=== PATIENT | male | born 1985 | race Caucasian/White ===

== ENCOUNTER 2020-03-08 10:16 | Inpatient (IN) | payer MEDICAID ==
[~2020-03-08] VITALS: Ht 175.3 cm; Wt 67.9 kg
[2020-03-08 11:12] LABS: MEAN CORPUSCULAR HEMOGLOBIN 28.8 pg (27.5-34.5); MEAN CORPUSCULAR HGB CONC 33.5 g/dL (33.2-36.2); MEAN PLATELET VOLUME 7.1 fL (7.4-10.4); PLATELET COUNT 263 x10^3/uL (130-400); RED BLOOD COUNT 5.07 x10^6/uL (4.38-5.82); RED CELL DISTRIBUTION WIDTH 13.7 % (9.4-14.8)
[2020-03-08 11:23] LABS: ALANINE AMINOTRANSFERASE 29 U/L (12-78); ALBUMIN 2.4 g/dL (3.4-5.0); ANION GAP 6 mmol/L (5-15); CALCIUM 8.9 mg/dL (8.5-10.1); CHLORIDE 95 mmol/L (98-107); CREATININE 1.08 mg/dL (0.7-1.3)
[2020-03-08 11:25] LABS: ALKALINE PHOSPHATASE 162 U/L (45-117); BILIRUBIN,TOTAL 0.9 mg/dL (0.2-1.0); TOTAL PROTEIN 6.9 g/dL (6.4-8.2)
[2020-03-08 11:39] LABS: MD YES
[2020-03-08 11:43] LABS: <PLATELET ESTIMATE> ADEQUATE; <PLT MORPHOLOGY> NORMAL PLT MORPH; <RBC MORPHOLOGY> NORMAL; BAND#(MANUAL) 2.78 x10^3/uL; BANDS%(MANUAL) 15 % (0-7); LYMPH#(MANUAL) 1.11 x10^3/uL (1-3.4); LYMPHS% (MANUAL) 6 % (22-44); METAMYELOCYTES# (MANUAL) 0.19 x10^3/uL (0-0); METAMYELOCYTES% (MANUAL) 1 % (0-1); MONOS#(MANUAL) 0.56 x10^3/uL (0.3-2.7); MONOS% (MANUAL) 3 % (2-9); PMNS WITH VACUOLES 1+; SEG#(MANUAL) 13.88 x10^3/uL (1.8-6.8); SEGS% (MANUAL) 75 % (42-75)
--- NOTE | 2020-03-08 12:41 | NUR ---
C/O PAIN AND SWELLING ON PENIS SINCE 0200 AM THIS MORNING. PLACED ON VITALS MONITORS, CALL LIGHT WITHIN REACH.
--- NOTE | 2020-03-08 12:57 | NUR ---
URINE SAMPLE COLLECTED.
[2020-03-08] MEDS ORDERED: SODIUM CHLORIDE FLUSH 10ML SYR IVF ONE (13:00)
[2020-03-08] MEDS ORDERED: SODIUM CHLORIDE 0.9% 1,000ML IV ONE (13:00)
[2020-03-08 13:08] LABS: MICROSCOPIC INDICATED
--- NOTE | 2020-03-08 13:21 | NUR ---
CHELLE GODOY PT'S MOM, OKAY TO RELEASE INFORMATION PER PT. [phone]
[2020-03-08] MEDS ORDERED: HYDROmorphone 1 MG/ML, 1ML INJ ONE ×2 (13:24→16:43)
[2020-03-08] MEDS ORDERED: ONDANSETRON 2MG/ML, 2ML ONE (13:24)
[2020-03-08] MEDS ORDERED: CEFTRIAXONE PMX 1GM/50ML 50 ML ONE (13:24)
[2020-03-08] MEDS: HYDROmorphone 1 MG/ML, 1ML INJ IVPush PRN ×2 (13:26→16:48)
[2020-03-08 13:27] LABS: AMPHETAMINE SCREEN, URINE Positive (Negative); BARBITURATE SCREEN, URINE Negative (Negative); BENZODIAZEPINE SCREEN, URINE Negative (Negative); CANNABINOID SCREEN, URINE Positive (Negative); COCAINE SCREEN, URINE Negative (Negative); METHADONE SCREEN, URINE Negative (Negative); OPIATE SCREEN, URINE Negative (Negative)
[2020-03-08] MEDS ORDERED: CEFTRIAXONE PMX 1GM/50ML 50 ML IV ONE (13:30)
--- NOTE | 2020-03-08 13:36 | NUR ---
CALL TO CT, PT IS READY FOR CT.
[2020-03-08] MEDS ORDERED: VANCOMYCIN PER PHARMACY MC PRN ×2 (14:00→16:30)
[2020-03-08] MEDS ORDERED: ONDANSETRON 2MG/ML, 2ML IVPush ONE (14:00)
[2020-03-08] MEDS ORDERED: VANCOMYCIN 1,700 MG in SODIUM CHLORIDE 0.9% 250 ML IV ONE (14:00)
--- NOTE | 2020-03-08 14:03 | NUR ---
PT TRANSPORTED TO CT.
[2020-03-08] MEDS ORDERED: OMNIPAQUE 350 MG/ML, 100ML BOTTLE ONE (14:18)
--- NOTE | 2020-03-08 14:50 | NUR ---
GRANDMOTHER [phone], ISABELL GUDINO TO RELEASE INFORMATION PER PT REQUEST.
--- NOTE | 2020-03-08 14:50 | NUR ---
PT REPORTS PAIN HAS SUBSIDED.
[2020-03-08] MEDS ORDERED: ALBUTEROL INHALER (15:10)
--- NOTE | 2020-03-08 15:46 | NUR ---
RAPID COVID SWAB SENT TO LAB.
--- NOTE | 2020-03-08 15:47 | NUR ---
BLADDER SCAN INDICATED >542ML.
[2020-03-08] MEDS ORDERED: SODIUM CHLORIDE 0.9% 1,000ML IVBOLUS ONE (16:00)
[2020-03-08] MEDS ORDERED: ONDANSETRON ODT 4 MG PO PRN (16:30)
[2020-03-08] MEDS ORDERED: ONDANSETRON 2MG/ML, 2ML IVPush PRN (16:30)
[2020-03-08] MEDS ORDERED: PIPERACILLIN/TAZO/PMX 3.375GM 50 ML ONE (16:30)
[2020-03-08] MEDS ORDERED: ACETAMINOPHEN 325 MG TABLET PO PRN (16:30)
[2020-03-08] MEDS: PIPERACILLIN/TAZO/PMX 3.375GM 50 ML IV SCH (16:34)
[2020-03-08] MEDS ORDERED: LIDOCAINE 1%, 20ML ONE (16:37)
[2020-03-08] MEDS: LACTATED RINGERS 1,000 ML IV SCH (16:39)
[2020-03-08] MEDS ORDERED: NALOXONE 1 MG/ML, 2ML ONE (16:51)
[2020-03-08] MEDS ORDERED: FENTANYL PF 100 MCG/2ML ONE (16:51)
--- NOTE | 2020-03-08 16:55 | NUR ---
PT TRANSPORTED TO IR.
--- NOTE | 2020-03-08 17:49 | NUR ---
CALL FROM [facility] RN, PT HAS A 14Fr. SUPRAPUBIC CATH, 1000ML OUTPUT AT THIS TIME.
--- NOTE | 2020-03-08 20:16 | NUR ---
REPORT TO TIFFANIE DE LA PAZ.
[2020-03-08] MEDS: morphine SULFATE 10 MG/ML, 1ML IVPush PRN (23:27)
[2020-03-09] MEDS: PIPERACILLIN/TAZO/PMX 3.375GM 50 ML IV SCH ×3 (00:56→16:10)
[2020-03-09] MEDS: LACTATED RINGERS 1,000 ML IV SCH ×3 (00:57→20:05)
[2020-03-09 02:05] VITALS: BP 109/63
[2020-03-09 06:51] VITALS: BP 103/62
[2020-03-09 06:53] LABS: BASOPHILS % (AUTO) 1 % (0-1); EOSINOPHILS % (AUTO) 0 % (1-7); LYMPHOCYTES % (AUTO) 10 % (22-44); MEAN CORPUSCULAR HEMOGLOBIN 28.4 pg (27.5-34.5); MEAN CORPUSCULAR HGB CONC 33.2 g/dL (33.2-36.2); MEAN PLATELET VOLUME 8.1 fL (7.4-10.4); MONOCYTES % (AUTO) 6 % (2-9); NEUTROPHILS % (AUTO) 84 % (42-75); PLATELET COUNT 192 x10^3/uL (130-400); RED BLOOD COUNT 4.16 x10^6/uL (4.38-5.82); RED CELL DISTRIBUTION WIDTH 13.8 % (9.4-14.8)
[2020-03-09 06:56] LABS: MD NO
[2020-03-09 07:05] LABS: CHLORIDE 101 mmol/L (98-107)
[2020-03-09 07:10] LABS: ALANINE AMINOTRANSFERASE 20 U/L (12-78); ALBUMIN 1.8 g/dL (3.4-5.0); ALKALINE PHOSPHATASE 122 U/L (45-117); ANION GAP 7 mmol/L (5-15); BILIRUBIN,TOTAL 0.8 mg/dL (0.2-1.0); CREATININE 0.72 mg/dL (0.7-1.3); TOTAL PROTEIN 5.5 g/dL (6.4-8.2)
[2020-03-09] MEDS: morphine SULFATE 10 MG/ML, 1ML IVPush PRN (09:07)
[2020-03-09] MEDS ORDERED: PHARMACOKINETIC MONITORING MC PRN (11:00)
[2020-03-09] MEDS: VANCOMYCIN 1,500 MG in SODIUM CHLORIDE 0.9% 250 ML IV SCH (11:08)
[2020-03-09] MEDS ORDERED: CHLORHEXIDINE 15 ML UDC ONE (12:03)
[2020-03-09] MEDS ORDERED: CHLORHEXIDINE 15 ML UDC MM ONE (12:30)
[2020-03-09] MEDS ORDERED: FENTANYL PF 250 MCG/5ML ONE (12:47)
[2020-03-09] MEDS ORDERED: PROPOFOL 10 MG/ML, 20ML ONE (13:01)
[2020-03-09] MEDS ORDERED: DEXAMETHASONE 4 MG/ML, 5ML ONE (13:01)
[2020-03-09] MEDS ORDERED: ONDANSETRON 2MG/ML, 2ML ONE (13:01)
[2020-03-09] MEDS ORDERED: FENTANYL PF 100 MCG/2ML IV PRN (13:30)
[2020-03-09] MEDS ORDERED: ONDANSETRON 2MG/ML, 2ML IVPush PRN (13:30)
[2020-03-09] MEDS ORDERED: OXYcodone 5 MG/5 ML ORAL.SOL UDC PO PRN (13:30)
[2020-03-09] MEDS ORDERED: HYDROmorphone 1 MG/ML, 1ML INJ IVPush PRN (13:30)
[2020-03-09 15:00] VITALS: BP 116/78
[2020-03-09] MEDS: NICOTINE 21 MG/24 HR PATCH.TD24 TD SCH (16:10)
[2020-03-09] MEDS ORDERED: FENTANYL PF 100 MCG/2ML ONE (16:29)
[2020-03-09] MEDS ORDERED: NALOXONE 1 MG/ML, 2ML ONE (16:29)
[2020-03-09] MEDS ORDERED: LIDOCAINE 1%, 10ML ONE ×2 (16:37→17:06)
[2020-03-09 18:47] VITALS: BP 108/69
[2020-03-10 00:04] VITALS: BP 97/63
[2020-03-10] MEDS: PIPERACILLIN/TAZO/PMX 3.375GM 50 ML IV SCH ×3 (02:16→17:43)
[2020-03-10] MEDS: morphine SULFATE 10 MG/ML, 1ML IVPush PRN ×5 (03:06→20:49)
[2020-03-10 04:30] LABS: BASOPHILS % (AUTO) 0 % (0-1); EOSINOPHILS % (AUTO) 0 % (1-7); LYMPHOCYTES % (AUTO) 8 % (22-44); MEAN CORPUSCULAR HEMOGLOBIN 28.2 pg (27.5-34.5); MEAN CORPUSCULAR HGB CONC 32.6 g/dL (33.2-36.2); MEAN PLATELET VOLUME 7.9 fL (7.4-10.4); MONOCYTES % (AUTO) 6 % (2-9); NEUTROPHILS % (AUTO) 85 % (42-75); PLATELET COUNT 199 x10^3/uL (130-400); RED BLOOD COUNT 4.11 x10^6/uL (4.38-5.82)
[2020-03-10 04:36] LABS: ALBUMIN 1.6 g/dL (3.4-5.0); CALCIUM 7.8 mg/dL (8.5-10.1)
[2020-03-10 04:41] LABS: ALANINE AMINOTRANSFERASE 21 U/L (12-78); ALKALINE PHOSPHATASE 122 U/L (45-117); BILIRUBIN,TOTAL 0.4 mg/dL (0.2-1.0); CREATININE 0.83 mg/dL (0.7-1.3); TOTAL PROTEIN 5.3 g/dL (6.4-8.2)
[2020-03-10 04:54] LABS: MD NO
[2020-03-10 05:24] LABS: ANION GAP 4 mmol/L (5-15); CHLORIDE 103 mmol/L (98-107)
[2020-03-10 07:20] VITALS: BP 108/67
[2020-03-10] MEDS: NICOTINE 21 MG/24 HR PATCH.TD24 TD SCH (10:09)
[2020-03-10] MEDS: LACTATED RINGERS 1,000 ML IV SCH (10:18)
[2020-03-10] MEDS: VANCOMYCIN 1,500 MG in SODIUM CHLORIDE 0.9% 250 ML IV SCH ×2 (12:10)
[2020-03-10 12:26] VITALS: BP 105/65
[2020-03-10] MEDS: HYDROcodone/APAP 5/325 TABLET PO PRN (17:51)
[2020-03-10 18:54] VITALS: BP 113/70
[2020-03-11] MEDS: LACTATED RINGERS 1,000 ML IV SCH ×3 (00:02→20:17)
[2020-03-11 00:41] VITALS: BP 105/68
[2020-03-11] MEDS: HYDROcodone/APAP 5/325 TABLET PO PRN ×4 (00:53→18:48)
[2020-03-11] MEDS: PIPERACILLIN/TAZO/PMX 3.375GM 50 ML IV SCH ×3 (01:39→18:50)
[2020-03-11 05:05] LABS: ALBUMIN 1.6 g/dL (3.4-5.0); ANION GAP 3 mmol/L (5-15); CALCIUM 7.8 mg/dL (8.5-10.1); CHLORIDE 106 mmol/L (98-107)
[2020-03-11 05:07] LABS: MEAN CORPUSCULAR HEMOGLOBIN 28.6 pg (27.5-34.5); MEAN CORPUSCULAR HGB CONC 32.9 g/dL (33.2-36.2); MEAN PLATELET VOLUME 7.7 fL (7.4-10.4); PLATELET COUNT 244 x10^3/uL (130-400); RED BLOOD COUNT 4.08 x10^6/uL (4.38-5.82); RED CELL DISTRIBUTION WIDTH 13.8 % (9.4-14.8)
[2020-03-11 05:08] LABS: ALANINE AMINOTRANSFERASE 23 U/L (12-78); ALKALINE PHOSPHATASE 99 U/L (45-117); BILIRUBIN,TOTAL 0.3 mg/dL (0.2-1.0); CREATININE 0.54 mg/dL (0.7-1.3); TOTAL PROTEIN 5.1 g/dL (6.4-8.2)
[2020-03-11 06:17] LABS: MD YES
[2020-03-11 06:18] LABS: BAND#(MANUAL) 0.33 x10^3/uL; BANDS%(MANUAL) 3 % (0-7); EOS#(MANUAL) 0.22 x10^3/uL (0.0-0.4); EOS% (MANUAL) 2 % (1-7); LYMPHS% (MANUAL) 22 % (22-44); METAMYELOCYTES# (MANUAL) 0.33 x10^3/uL (0-0); METAMYELOCYTES% (MANUAL) 3 % (0-1); MONOS#(MANUAL) 0.33 x10^3/uL (0.3-2.7); MONOS% (MANUAL) 3 % (2-9); SEGS% (MANUAL) 67 % (42-75)
[2020-03-11 06:20] LABS: <PLATELET ESTIMATE> ADEQUATE; <PLT MORPHOLOGY> NORMAL PLT MORPH; OVALOCYTES 1+
[2020-03-11 08:25] VITALS: BP 124/79
[2020-03-11] MEDS: NICOTINE 21 MG/24 HR PATCH.TD24 TD SCH (10:47)
[2020-03-11 13:11] VITALS: BP 108/68
[2020-03-11] MEDS ORDERED: BISACODYL 10 MG SUPP PR PRN (17:30)
[2020-03-11 19:27] VITALS: BP 123/78
[2020-03-11] MEDS: AMPICILLIN 2 GM in SODIUM CHLORIDE 0.9% 100 ML IV SCH ×2 (20:17→23:23)
[2020-03-11] MEDS: SENNA/DOCUSATE TABLET PO PRN (20:30)
[2020-03-12 00:49] VITALS: BP 127/81
[2020-03-12] MEDS: HYDROcodone/APAP 5/325 TABLET PO PRN ×3 (01:45→17:46)
[2020-03-12] MEDS: AMPICILLIN 2 GM in SODIUM CHLORIDE 0.9% 100 ML IV SCH ×6 (02:00→23:30)
[2020-03-12] MEDS: LACTATED RINGERS 1,000 ML IV SCH ×3 (04:17→21:28)
[2020-03-12 06:07] LABS: CHLORIDE 103 mmol/L (98-107)
[2020-03-12 06:09] LABS: MEAN CORPUSCULAR HEMOGLOBIN 28.2 pg (27.5-34.5); MEAN CORPUSCULAR HGB CONC 32.8 g/dL (33.2-36.2); MEAN PLATELET VOLUME 6.9 fL (7.4-10.4); PLATELET COUNT 367 x10^3/uL (130-400); RED BLOOD COUNT 4.54 x10^6/uL (4.38-5.82); RED CELL DISTRIBUTION WIDTH 13.7 % (9.4-14.8)
[2020-03-12 06:19] LABS: ALANINE AMINOTRANSFERASE 29 U/L (12-78); ALBUMIN 1.8 g/dL (3.4-5.0); ALKALINE PHOSPHATASE 106 U/L (45-117); ANION GAP 5 mmol/L (5-15); BILIRUBIN,TOTAL 0.4 mg/dL (0.2-1.0); CALCIUM 8.7 mg/dL (8.5-10.1); CREATININE 0.57 mg/dL (0.7-1.3); TOTAL PROTEIN 5.6 g/dL (6.4-8.2)
[2020-03-12 06:51] LABS: HCT (SEDRATE) 38.9 % (39.2-51.8)
[2020-03-12 07:06] LABS: MD YES
[2020-03-12 07:08] LABS: <PLATELET ESTIMATE> ADEQUATE; <PLT MORPHOLOGY> NORMAL PLT MORPH; <RBC MORPHOLOGY> NORMAL; EOS#(MANUAL) 0.42 x10^3/uL (0.0-0.4); EOS% (MANUAL) 3 % (1-7); LYMPH#(MANUAL) 3.92 x10^3/uL (1-3.4); LYMPHS% (MANUAL) 28 % (22-44); MONOS#(MANUAL) 0.56 x10^3/uL (0.3-2.7); MONOS% (MANUAL) 4 % (2-9); MYELOCYTES# (MANUAL) 0.28 x10^3/uL (0-0); MYELOCYTES% (MANUAL) 2 % (0-0); REACTIVE LYMPHS # (MANUAL) 0.14 x10^3/uL (0-0); REACTIVE LYMPHS % (MANUAL) 1 % (0-0); SEG#(MANUAL) 8.68 x10^3/uL (1.8-6.8); SEGS% (MANUAL) 62 % (42-75)
[2020-03-12 07:18] VITALS: BP 123/79
[2020-03-12] MEDS ORDERED: OMNIPAQUE 350 MG/ML, 100ML BOTTLE ONE (08:57)
[2020-03-12] MEDS: NICOTINE 21 MG/24 HR PATCH.TD24 TD SCH (09:00)
[2020-03-12 13:57] VITALS: BP 122/77
[2020-03-12] MEDS: SENNA/DOCUSATE TABLET PO PRN (18:59)
[2020-03-12 19:38] VITALS: BP 118/76
[2020-03-12] MEDS: ZOLPIDEM 5MG TABLET PO PRN (21:29)
[2020-03-13 00:08] VITALS: BP 118/78
[2020-03-13] MEDS: LACTATED RINGERS 1,000 ML IV SCH ×3 (03:42→21:09)
[2020-03-13] MEDS: AMPICILLIN 2 GM in SODIUM CHLORIDE 0.9% 100 ML IV SCH ×6 (03:42→22:38)
[2020-03-13 05:03] LABS: MEAN CORPUSCULAR HEMOGLOBIN 28.2 pg (27.5-34.5); MEAN CORPUSCULAR HGB CONC 32.6 g/dL (33.2-36.2); MEAN PLATELET VOLUME 6.8 fL (7.4-10.4); PLATELET COUNT 425 x10^3/uL (130-400); RED BLOOD COUNT 4.33 x10^6/uL (4.38-5.82); RED CELL DISTRIBUTION WIDTH 13.8 % (9.4-14.8)
[2020-03-13 05:12] LABS: ALBUMIN 1.8 g/dL (3.4-5.0); ANION GAP 4 mmol/L (5-15); CALCIUM 8.4 mg/dL (8.5-10.1); CHLORIDE 105 mmol/L (98-107)
[2020-03-13 05:16] LABS: ALANINE AMINOTRANSFERASE 35 U/L (12-78); ALKALINE PHOSPHATASE 104 U/L (45-117); BILIRUBIN,TOTAL 0.4 mg/dL (0.2-1.0); CREATININE 0.63 mg/dL (0.7-1.3); TOTAL PROTEIN 5.6 g/dL (6.4-8.2)
[2020-03-13 06:15] LABS: BAND#(MANUAL) 0.16 x10^3/uL; BANDS%(MANUAL) 1 % (0-7); EOS#(MANUAL) 0.32 x10^3/uL (0.0-0.4); EOS% (MANUAL) 2 % (1-7); LYMPH#(MANUAL) 3.34 x10^3/uL (1-3.4); LYMPHS% (MANUAL) 21 % (22-44); MD YES; MONOS#(MANUAL) 0.95 x10^3/uL (0.3-2.7); MONOS% (MANUAL) 6 % (2-9); SEG#(MANUAL) 10.34 x10^3/uL (1.8-6.8); SEGS% (MANUAL) 65 % (42-75)
[2020-03-13 06:16] LABS: <PLATELET ESTIMATE> INCREASED; <PLT MORPHOLOGY> NORMAL PLT MORPH; METAMYELOCYTES# (MANUAL) 0.48 x10^3/uL (0-0); METAMYELOCYTES% (MANUAL) 3 % (0-1); MYELOCYTES# (MANUAL) 0.32 x10^3/uL (0-0); MYELOCYTES% (MANUAL) 2 % (0-0)
[2020-03-13 06:17] LABS: <RBC MORPHOLOGY> NORMAL
[2020-03-13 07:12] VITALS: BP 127/76
[2020-03-13] MEDS: NICOTINE 21 MG/24 HR PATCH.TD24 TD SCH (08:13)
[2020-03-13] MEDS: HYDROcodone/APAP 5/325 TABLET PO PRN ×2 (08:14→12:58)
[2020-03-13 12:30] VITALS: BP 119/83
[2020-03-13 18:38] VITALS: BP 122/77
[2020-03-13] MEDS: ZOLPIDEM 5MG TABLET PO PRN (21:10)
[2020-03-13] MEDS: POLYETHYLENE GLYCOL 17 GM PACKET PO PRN (22:38)
[2020-03-14 01:30] VITALS: BP 122/80
[2020-03-14] MEDS: HYDROcodone/APAP 5/325 TABLET PO PRN ×4 (01:32→20:49)
[2020-03-14] MEDS: AMPICILLIN 2 GM in SODIUM CHLORIDE 0.9% 100 ML IV SCH ×5 (02:37→20:49)
[2020-03-14] MEDS: LACTATED RINGERS 1,000 ML IV SCH ×3 (04:22→22:01)
[2020-03-14 05:04] LABS: MEAN CORPUSCULAR HEMOGLOBIN 28.6 pg (27.5-34.5); MEAN CORPUSCULAR HGB CONC 33.2 g/dL (33.2-36.2); MEAN PLATELET VOLUME 6.4 fL (7.4-10.4); PLATELET COUNT 472 x10^3/uL (130-400); RED BLOOD COUNT 4.35 x10^6/uL (4.38-5.82); RED CELL DISTRIBUTION WIDTH 13.7 % (9.4-14.8)
[2020-03-14] MEDS ORDERED: FLU VACC QS2020-21(6MOS UP)/PF 60MCG/0.5 ML SYR IM-VACC ONE ×2 (05:30→08:00)
[2020-03-14 05:48] LABS: MD YES
[2020-03-14 05:49] LABS: BAND#(MANUAL) 0.15 x10^3/uL; BANDS%(MANUAL) 1 % (0-7); EOS#(MANUAL) 0.31 x10^3/uL (0.0-0.4); EOS% (MANUAL) 2 % (1-7); LYMPH#(MANUAL) 2.46 x10^3/uL (1-3.4); LYMPHS% (MANUAL) 16 % (22-44); MONOS#(MANUAL) 0.62 x10^3/uL (0.3-2.7); MONOS% (MANUAL) 4 % (2-9); SEG#(MANUAL) 11.86 x10^3/uL (1.8-6.8); SEGS% (MANUAL) 77 % (42-75)
[2020-03-14 05:50] LABS: <PLATELET ESTIMATE> INCREASED; <PLT MORPHOLOGY> NORMAL PLT MORPH; <RBC MORPHOLOGY> NORMAL
[2020-03-14 07:14] VITALS: BP 120/77
[2020-03-14] MEDS: NICOTINE 21 MG/24 HR PATCH.TD24 TD SCH (07:18)
[2020-03-14] MEDS ORDERED: LORazepam 2 MG/ML, 1ML ONE (07:36)
[2020-03-14] MEDS ORDERED: LORazepam 2 MG/ML, 1ML IVPush ONE (08:00)
[2020-03-14 12:24] VITALS: BP 118/76
[2020-03-14] MEDS: ZOLPIDEM 5MG TABLET PO PRN (21:00)
[2020-03-14 21:12] VITALS: BP 121/75
[2020-03-15 02:33] VITALS: BP 116/73
[2020-03-15] MEDS: AMPICILLIN 2 GM in SODIUM CHLORIDE 0.9% 100 ML IV SCH ×6 (03:00→21:06)
[2020-03-15] MEDS: LACTATED RINGERS 1,000 ML IV SCH ×2 (06:49→12:04)
[2020-03-15 07:35] VITALS: BP 115/70
[2020-03-15] MEDS: NICOTINE 21 MG/24 HR PATCH.TD24 TD SCH (08:21)
[2020-03-15 09:44] LABS: BASOPHILS % (AUTO) 1 % (0-1); EOSINOPHILS % (AUTO) 2 % (1-7); LYMPHOCYTES % (AUTO) 18 % (22-44); MEAN CORPUSCULAR HEMOGLOBIN 28.1 pg (27.5-34.5); MEAN CORPUSCULAR HGB CONC 32.4 g/dL (33.2-36.2); MEAN PLATELET VOLUME 6.3 fL (7.4-10.4); MONOCYTES % (AUTO) 6 % (2-9); NEUTROPHILS % (AUTO) 73 % (42-75); PLATELET COUNT 593 x10^3/uL (130-400); RED BLOOD COUNT 4.41 x10^6/uL (4.38-5.82); RED CELL DISTRIBUTION WIDTH 13.9 % (9.4-14.8)
[2020-03-15 10:04] LABS: MD SCAN
[2020-03-15] MEDS: HYDROcodone/APAP 5/325 TABLET PO PRN ×2 (11:59→21:06)
[2020-03-15] MEDS: POLYETHYLENE GLYCOL 17 GM PACKET PO PRN (11:59)
[2020-03-15 13:59] VITALS: BP 116/73
[2020-03-15] MEDS: ZOLPIDEM 5MG TABLET PO PRN (21:07)
[2020-03-15 21:16] VITALS: BP 123/73
[2020-03-16] MEDS: AMPICILLIN 2 GM in SODIUM CHLORIDE 0.9% 100 ML IV SCH ×6 (01:14→22:32)
[2020-03-16 01:22] VITALS: BP 97/59
[2020-03-16 06:10] LABS: MEAN CORPUSCULAR HEMOGLOBIN 28.6 pg (27.5-34.5); MEAN PLATELET VOLUME 6.1 fL (7.4-10.4); PLATELET COUNT 545 x10^3/uL (130-400); RED BLOOD COUNT 4.32 x10^6/uL (4.38-5.82)
[2020-03-16 07:07] LABS: HCT (SEDRATE) 37.4 % (39.2-51.8)
[2020-03-16 07:28] LABS: MD YES
[2020-03-16 07:30] LABS: <PLATELET ESTIMATE> INCREASED; <PLT MORPHOLOGY> NORMAL PLT MORPH; ANISOCYTOSIS 1+; BAND#(MANUAL) 0.13 x10^3/uL; BANDS%(MANUAL) 1 % (0-7); EOS#(MANUAL) 0.67 x10^3/uL (0.0-0.4); EOS% (MANUAL) 5 % (1-7); LYMPH#(MANUAL) 3.35 x10^3/uL (1-3.4); LYMPHS% (MANUAL) 25 % (22-44); MONOS#(MANUAL) 1.07 x10^3/uL (0.3-2.7); MONOS% (MANUAL) 8 % (2-9); OVALOCYTES 1+; SEG#(MANUAL) 8.17 x10^3/uL (1.8-6.8); SEGS% (MANUAL) 61 % (42-75)
[2020-03-16 09:30] VITALS: BP 134/76
[2020-03-16] MEDS: NICOTINE 21 MG/24 HR PATCH.TD24 TD SCH (09:35)
[2020-03-16 11:58] LABS: ANION GAP 6 mmol/L (5-15); CALCIUM 8.9 mg/dL (8.5-10.1); CHLORIDE 105 mmol/L (98-107)
[2020-03-16 11:59] LABS: ALANINE AMINOTRANSFERASE 49 U/L (12-78); ALBUMIN 2.6 g/dL (3.4-5.0); ALKALINE PHOSPHATASE 123 U/L (45-117); BILIRUBIN,TOTAL 0.3 mg/dL (0.2-1.0)
[2020-03-16] MEDS: HYDROcodone/APAP 5/325 TABLET PO PRN ×2 (12:05→19:51)
[2020-03-16 15:00] VITALS: BP 147/76
[2020-03-16 20:14] VITALS: BP 130/71
[2020-03-16] MEDS: ZOLPIDEM 5MG TABLET PO PRN (21:28)
[2020-03-17] MEDS: AMPICILLIN 2 GM in SODIUM CHLORIDE 0.9% 100 ML IV SCH ×3 (02:42→10:42)
[2020-03-17 05:12] VITALS: BP 121/73
[2020-03-17 07:05] VITALS: BP 116/77
[2020-03-17 08:52] LABS: MEAN CORPUSCULAR HGB CONC 33.2 g/dL (33.2-36.2); MEAN PLATELET VOLUME 6.1 fL (7.4-10.4); PLATELET COUNT 565 x10^3/uL (130-400); RED BLOOD COUNT 4.44 x10^6/uL (4.38-5.82); RED CELL DISTRIBUTION WIDTH 14.5 % (9.4-14.8)
[2020-03-17 09:04] LABS: ANION GAP 6 mmol/L (5-15); CALCIUM 8.9 mg/dL (8.5-10.1); CHLORIDE 103 mmol/L (98-107); CREATININE 0.75 mg/dL (0.7-1.3)
[2020-03-17 09:24] LABS: MD YES
[2020-03-17 09:26] LABS: <PLATELET ESTIMATE> INCREASED; <PLT MORPHOLOGY> NORMAL PLT MORPH; ANISOCYTOSIS 1+; BAND#(MANUAL) 0.38 x10^3/uL; BANDS%(MANUAL) 3 % (0-7); EOS#(MANUAL) 0.26 x10^3/uL (0.0-0.4); EOS% (MANUAL) 2 % (1-7); LYMPH#(MANUAL) 2.56 x10^3/uL (1-3.4); LYMPHS% (MANUAL) 20 % (22-44); METAMYELOCYTES# (MANUAL) 0.26 x10^3/uL (0-0); METAMYELOCYTES% (MANUAL) 2 % (0-1); MONOS#(MANUAL) 0.51 x10^3/uL (0.3-2.7); MONOS% (MANUAL) 4 % (2-9); OVALOCYTES 1+; SEG#(MANUAL) 8.83 x10^3/uL (1.8-6.8); SEGS% (MANUAL) 69 % (42-75)
[2020-03-17] MEDS: NICOTINE 21 MG/24 HR PATCH.TD24 TD SCH (10:30)
[2020-03-17] MEDS: HYDROcodone/APAP 5/325 TABLET PO PRN (10:42)
[2020-03-17] MEDS ORDERED: LINE600T12 PO (11:59)
[2020-03-17] MEDS ORDERED: NICO-487 TD (11:59)
[2020-03-17] MEDS ORDERED: HYDR-3237 PO (11:59)
[2020-03-17 13:40] VITALS: BP 144/80
== END 2020-03-17 14:34 | disposition home or self-care (01) | DRG 871 ==
LOC: ED 13:26 → 4WST 16:06 → 5SO 03-11 17:16 → DCLOUNGE 03-17 14:08
PROVIDERS: ADMIT Family Medicine; ATTEND Family Medicine
PROC: 0T9B70Z Drainage of Bladder with Drainage Device, Via Natural or Artificial Opening (ICD-10-PCS; 2020-03-08)
PROC: 0TJB8ZZ Inspection of Bladder, Via Natural or Artificial Opening Endoscopic (ICD-10-PCS; 2020-03-09)
PROC: 0T7D8ZZ Dilation of Urethra, Via Natural or Artificial Opening Endoscopic (ICD-10-PCS; principal; 2020-03-09 12:30)
PROC: 0V9030Z Drainage of Prostate with Drainage Device, Percutaneous Approach (ICD-10-PCS; 2020-03-10)
DX: A41.81 Sepsis due to Enterococcus (principal); E43 Unspecified severe protein-calorie malnutrition; E87.1 Hypo-osmolality and hyponatremia; N41.2 Abscess of prostate; D63.8 Anemia in other chronic diseases classified elsewhere; Z68.22 Body mass index [BMI] 22.0-22.9, adult; F10.10 Alcohol abuse, uncomplicated; F12.10 Cannabis abuse, uncomplicated; F15.10 Other stimulant abuse, uncomplicated; F17.210 Nicotine dependence, cigarettes, uncomplicated; F25.9 Schizoaffective disorder, unspecified; F31.9 Bipolar disorder, unspecified; G47.00 Insomnia, unspecified; J45.20 Mild intermittent asthma, uncomplicated; N35.911 Unspecified urethral stricture, male, meatal; N47.1 Phimosis; Z20.828 Contact with and (suspected) exposure to other viral communicable diseases; Z59.0 Homelessness
CPT/HCPCS: 36415; 75989; 84145; 87806; 96365; 96366; 96367; 96375; 96376; 99291; J3490; 49406; 51703; 71045; 74177; 76937; 80048; 80053; 80307; 81001; 83605; 83735; 84100; 85025; 85651; 86140; 86704; 86705; 86706; 86707; 86709; 86803; 87040; 87070; 87075; 87077; 87086; 87186; 87205; 87340; 87350; 87491; 87591; 87635; 90686; 93005; C1725; G0378; J0290; J0696; J1100; J1170; J2405; J2543; J2704; J3010; J3370; Q0162; Q9967; C1729; C1769; G0475; J2060; J2270; J2310; J7030; J7050; J7120

== ENCOUNTER 2020-11-21 20:03 | Emergency (ER) | payer MEDICAID ==
[~2020-11-21] VITALS: Ht 175.3 cm; Wt 71.9 kg
[~2020-11-21 20:03] MED LIST: ALBUTEROL INHALER; HYDR-3237 PO; LINE600T12 PO; NICO-587 TD
[2020-11-21 20:07] VITALS: BP 126/73
[2020-11-21] MEDS ORDERED: ALBUTEROL/IPRATROPIUM 2.5MG/0.5MG, 3 ML NPPB ONE (20:30)
[2020-11-21] MEDS ORDERED: ALBUTEROL/IPRATROPIUM 2.5MG/0.5MG, 3 ML ONE (22:08)
--- NOTE | 2020-11-21 22:19 | NUR ---
Pt alert and oriented x4, hx of asthma, ran out of rescue inhaler at home. Wheezes upon ausculation throughout. Speaking in full sentences, RA sats WNL. Given PO Prednison and breathing tx. Tolerated well.
--- NOTE | 2020-11-21 23:16 | NUR ---
Pt feeling better after breathing tx. Discharge pending.
== END 2020-11-22 00:29 | disposition home or self-care (01) ==
LOC: ED 20:33
DX: J45.41 Moderate persistent asthma with (acute) exacerbation (principal); F17.210 Nicotine dependence, cigarettes, uncomplicated
CPT/HCPCS: 94640; 99283; 99406; J7512